=== PATIENT | female | born 1965 | race Caucasian/White ===

== ENCOUNTER → 2020-05-25 | Outpatient (CLI) | payer BC ==
[2020-05-25 09:10] LABS: Basophils # (auto) 0.1 10 ^3/uL (0-0.2); Eosinophils # (auto) 0.3 10 ^3/uL (0-0.8); Eosinophils % (auto) 4.5 % (0.0-7.0); Hematocrit 40.9 % (36.0-46.0); Hemoglobin 13.5 g/dL (12.2-16.2); Lymphocytes # (auto) 2.2 10 ^3/uL (0.4-5.4); Lymphocytes % (auto) 34.2 % (10.0-50.0); Monocytes # (auto) 0.5 10 ^3/uL (0-1.3); Neutrophils # (auto) 3.3 10 ^3/uL (1.6-8.6); Neutrophils % (auto) 52.3 % (37.0-80.0); Nucleated Red Blood Cells % 0.1 %; Platelet Count (auto) 233 10^3/uL (140-450); Red Blood Cells 4.65 10^6/uL (4.0-5.20); Red Cell Distribution Width 13.6 % (11.8-14.3); White Blood Cell 6.4 10^3/uL (4.4-10.8)
[2020-05-25 09:31] LABS: INR 0.92 (0.9-1.15); Partial Thromboplastin Time 32.8 sec (23.0-31.2)
[2020-05-25 17:22] LABS: Albumin 3.6 g/dL (3.4-5.0); BUN/Creatinine Ratio 29.1; Calcium 9.2 mg/dL (8.5-10.1); Potassium 4.4 mmol/L (3.5-5.1)
[2020-05-25 17:41] LABS: Bilirubin, Total 0.4 mg/dL (0.2-1.0); Total Protein 7.7 g/dL (6.4-8.2)
== END | disposition home or self-care (01) ==
LOC: LAB 08:45
PROVIDERS: ATTEND Specialist
DX: R79.89 Other specified abnormal findings of blood chemistry (principal)
CPT/HCPCS: 36415; 80053; 85025; 85610; 85730

== ENCOUNTER → 2020-05-26 | Outpatient (CLI) | payer BC ==
[~2020-05-26] MED LIST: NITROGLYCERIN 0.4 MG SL TAB SL ONE
== END | disposition home or self-care (01) ==
LOC: CT 08:53 → EDUNIT# 09:00
DX: I25.10 Atherosclerotic heart disease of native coronary artery without angina pectoris (principal); I49.3 Ventricular premature depolarization; E78.2 Mixed hyperlipidemia; R06.09 Other forms of dyspnea; R07.9 Chest pain, unspecified
CPT/HCPCS: 75571; 75574

== ENCOUNTER 2022-09-19 09:35 | Inpatient (IN) | payer BC ==
[~2022-09-19] VITALS: Ht 154.9 cm; Wt 127.0 kg
[~2022-09-19 09:35] MED LIST changes: +ACET300T58 PO; +ALPR0.25 PO; +ATOR20TA PO; +METO25TA93 PO; -NITROGLYCERIN 0.4 MG SL TAB SL ONE; +TIZA6CAP10 PO; +TRAM50TA2 PO
[2022-09-19] MEDS ORDERED: ceFAZolin 1GM/50ML 100 ML IV ONE (10:08)
[2022-09-19] MEDS ORDERED: ACETAMINOPHEN IV 100 ML IV ONE (10:54)
[2022-09-19] MEDS ORDERED: GABAPENTIN 400 MG CAP ONE (10:55)
[2022-09-19] MEDS ORDERED: ACETAMINOPHEN 500 MG TAB PO ONE (11:00)
[2022-09-19] MEDS ORDERED: LIDOCAINE 4MG/ML IV SOLN 500 ML IV SCH (11:00)
[2022-09-19] MEDS: MAGNESIUM SULFATE 1GM/100ML 100 ML IV SCH ×4 (11:00→14:00)
[2022-09-19] MEDS ORDERED: GABAPENTIN 400 MG CAP PO ONE (11:00)
[2022-09-19] MEDS ORDERED: SODIUM CHLORIDE LOCK 10 ML ONE ×2 (11:11→12:20)
[2022-09-19] MEDS ORDERED: ROCURONIUM 10MG/ML 10ML VIAL IV ONE (11:11)
[2022-09-19] MEDS ORDERED: GLYCOPYRROLATE 0.2 MG/ML 1ML VIAL ONE (11:11)
[2022-09-19] MEDS ORDERED: LIDOCAINE HCL 100 MG/5ML (2%) SYRG INJ IV ONE (11:11)
[2022-09-19] MEDS ORDERED: ACETAMINOPHEN IV 1000 MG/100ML (10MG/ML) IV ONE (11:30)
[2022-09-19] MEDS ORDERED: MIDAZOLAM HCL 2MG/2ML 2ml VIAL (1mg/ml) ONE (12:20)
[2022-09-19] MEDS ORDERED: ONDANSETRON HCL 4 MG/2 ML VIAL ONE (12:20)
[2022-09-19] MEDS ORDERED: LIDOCAINE 4MG/ML IV SOLN 500 ML IV ONE (12:22)
[2022-09-19] MEDS ORDERED: MAGNESIUM SULFATE 1GM/100ML 200 ML IV ONE ×2 (12:22→12:46)
[2022-09-19] MEDS ORDERED: KETAMINE HCL 10 ML ONE (12:23)
[2022-09-19] MEDS ORDERED: PROPOFOL 10 MG/ML 20 ML IV ONE ×3 (12:23→15:09)
[2022-09-19] MEDS ORDERED: TRANEXAMIC ACID 20 ML ONE (12:24)
[2022-09-19] MEDS ORDERED: fentaNYL CITRATE 100 MCG/2 ML VL ONE (12:44)
[2022-09-19] MEDS ORDERED: TRANEXAMIC ACID 10 ML ONE (12:46)
[2022-09-19] MEDS ORDERED: CHLORHEXIDINE 4% TOPICAL soln 237ML TOP ONE (12:53)
[2022-09-19] MEDS ORDERED: ePHEDrine SULFATE 50 MG/ML AMP ONE (12:59)
[2022-09-19] MEDS ORDERED: CYCLOBENZAPRINE HCL 10 MG TAB PO ONE (16:15)
[2022-09-19] MEDS ORDERED: MORPHINE SULFATE 4 MG/ML SYR/VIAL IV PRN (16:15)
[2022-09-19] MEDS ORDERED: MORPHINE SULFATE INJ 2 MG/ml SYRG IV PRN ×3 (16:15→17:15)
[2022-09-19] MEDS ORDERED: ONDANSETRON HCL 4 MG/2 ML VIAL IV PRN (16:15)
[2022-09-19] MEDS ORDERED: NITROGLYCERIN 0.4 MG SL TAB SL PRN (16:15)
[2022-09-19] MEDS ORDERED: MILK OF MAGNESIA 30ML SUSP PO PRN (16:15)
[2022-09-19] MEDS ORDERED: DOCUSATE SOD 100 MG CAP PO PRN (16:15)
[2022-09-19] MEDS ORDERED: ACETAMINOPHEN 325 MG TAB PO PRN (16:15)
[2022-09-19] MEDS ORDERED: MORPHINE SULFATE 4 MG/ML SYR/VIAL IV ONE (16:15)
[2022-09-19] MEDS: D5W/SOD CHLO 0.9% 1,000 ML IV SCH (16:15)
[2022-09-19] MEDS ORDERED: HYDROmorphone HCL 2 MG/ML VL/or syr IV PRN ×2 (17:15)
[2022-09-19] MEDS ORDERED: METOCLOPRAMIDE HCL 5MG/ml INJ 2ml VIAL IV PRN (17:15)
[2022-09-19 21:22] VITALS: PULSE 89; RESP 16; O2SAT 98
[2022-09-19 21:31] VITALS: BP 153/73; PULSE 89; RESP 16; TEMP 97.5
[2022-09-19] MEDS: DOCUSATE SOD 100 MG CAP PO SCH (21:42)
[2022-09-19] MEDS: HYDROcodone-ACET 10/325MG TAB PO PRN (21:42)
[2022-09-19] MEDS: ATORVASTATIN 20 MG TAB PO SCH (21:44)
[2022-09-19] MEDS: CYCLOBENZAPRINE HCL 10 MG TAB PO SCH (21:44)
[2022-09-19] MEDS: ceFAZolin 1GM/50ML 50 ML IV SCH (21:46)
[2022-09-20] VITALS (9 sets, daily range): BP systolic 120–156; BP diastolic 58–89; PULSE 72–104; RESP 18–20; TEMP 97.4–98.9; O2SAT 92–97
[2022-09-20] MEDS: D5W/SOD CHLO 0.9% 1,000 ML IV SCH ×3 (02:15→21:35)
[2022-09-20] MEDS: ceFAZolin 1GM/50ML 50 ML IV SCH (03:57)
[2022-09-20] MEDS: CYCLOBENZAPRINE HCL 10 MG TAB PO SCH ×3 (06:26→21:34)
[2022-09-20] MEDS: DOCUSATE SOD 100 MG CAP PO SCH ×2 (08:50→21:34)
[2022-09-20] MEDS: HYDROcodone-ACET 10/325MG TAB PO PRN (09:41)
[2022-09-20] MEDS: ATORVASTATIN 20 MG TAB PO SCH (16:11)
[2022-09-21] MEDS: HYDROcodone-ACET 10/325MG TAB PO PRN ×2 (02:57→13:52)
[2022-09-21 05:00] VITALS: BP 107/71; PULSE 73; RESP 18; TEMP 97.9; O2SAT 99
[2022-09-21] MEDS: CYCLOBENZAPRINE HCL 10 MG TAB PO SCH ×2 (05:44→13:52)
[2022-09-21 08:00] VITALS: PULSE 69
[2022-09-21] MEDS: D5W/SOD CHLO 0.9% 1,000 ML IV SCH (08:15)
[2022-09-21 09:00] VITALS: BP 124/84; PULSE 85; RESP 16; TEMP 97.9; O2SAT 98
[2022-09-21] MEDS: DOCUSATE SOD 100 MG CAP PO SCH (09:39)
[2022-09-21 13:00] VITALS: BP 136/78; PULSE 85; RESP 16; TEMP 97.1; O2SAT 100
[2022-09-21 16:48] VITALS: BP 124/84; PULSE 85; RESP 16; TEMP 97.9; O2SAT 98
== END 2022-09-21 17:55 | disposition home health service (06) | DRG 460 ==
LOC: SUR 09:35 → TELE 16:13 → TELE-CENTR 20:51
PROVIDERS: ADMIT Orthopaedic Surgery; ATTEND Internal Medicine
PROC: 0SG30AJ Fusion of Lumbosacral Joint with Interbody Fusion Device, Posterior Approach, Anterior Column, Open Approach (ICD-10-PCS; 2022-09-19)
PROC: 01NB3ZZ Release Lumbar Nerve, Percutaneous Approach (ICD-10-PCS; 2022-09-19)
PROC: 01NR3ZZ Release Sacral Nerve, Percutaneous Approach (ICD-10-PCS; 2022-09-19)
PROC: 0SG00AJ Fusion of Lumbar Vertebral Joint with Interbody Fusion Device, Posterior Approach, Anterior Column, Open Approach (ICD-10-PCS; principal; 2022-09-19 12:43)
DX: M48.061 Spinal stenosis, lumbar region without neurogenic claudication (principal); M54.16 Radiculopathy, lumbar region; E78.5 Hyperlipidemia, unspecified; F17.210 Nicotine dependence, cigarettes, uncomplicated; Z91.041 Radiographic dye allergy status
CPT/HCPCS: 72100; 76000; 86850; 86900; 86901; 97110; 97116; 97163; 97530; G0378; J0131; J0690; J2250; J2405; J2704; J7042

== ENCOUNTER 2023-10-11 06:06 | Inpatient (IN) | payer BC ==
[~2023-10-11] VITALS: Ht 154.9 cm; Wt 133.3 kg
[~2023-10-11 06:06] MED LIST changes: -ACET300T58 PO; -ALPR0.25 PO; +OMEP-434 PO; -TIZA6CAP10 PO; -TRAM50TA2 PO
[2023-10-11] MEDS ORDERED: levoFLOXacin 750MG 150 ML IV ONE (06:45)
[2023-10-11] MEDS ORDERED: MIDAZOLAM HCL 2MG/2ML 2ml VIAL (1mg/ml) ONE (07:14)
[2023-10-11] MEDS ORDERED: HYDROmorphone HCL 2 MG/ML VL/or syr ONE (07:14)
[2023-10-11] MEDS ORDERED: fentaNYL CITRATE 100 MCG/2 ML VL ONE (07:14)
[2023-10-11] MEDS ORDERED: ONDANSETRON HCL 4 MG/2 ML VIAL ONE (07:15)
[2023-10-11] MEDS ORDERED: LIDOCAINE 1% INJ PF 5ML AMP ONE (07:15)
[2023-10-11] MEDS ORDERED: PROPOFOL 10 MG/ML 20 ML IV ONE (07:15)
[2023-10-11] MEDS ORDERED: PHENYLEPHRINE HCL 10 MG/ML VL ONE (07:15)
[2023-10-11] MEDS ORDERED: ePHEDrine SULFATE 50 MG/ML AMP ONE (07:15)
[2023-10-11] MEDS ORDERED: KETAMINE 50mg/ML 1ml syringe ONE (07:15)
[2023-10-11] MEDS ORDERED: KETOROLAC TROMETH 30 MG/ML 1ML VIAL ONE (07:15)
[2023-10-11] MEDS ORDERED: GLYCOPYRROLATE 0.2 MG/ML 1ML VIAL ONE (07:15)
[2023-10-11] MEDS ORDERED: DexAMETHasone SOD PHOS 10MG/1ML VIAL INJ ONE (07:15)
[2023-10-11] MEDS ORDERED: ceFAZolin 1GM VL ONE (08:18)
[2023-10-11] MEDS ORDERED: SUGAMMADEX 200mg/2ml Vial (100MG/ML) IV ONE (09:52)
[2023-10-11] MEDS ORDERED: ACETAMINOPHEN 325 MG TAB PO PRN (11:15)
[2023-10-11] MEDS ORDERED: NITROGLYCERIN 0.4 MG SL TAB SL PRN (11:15)
[2023-10-11] MEDS ORDERED: ONDANSETRON HCL 4 MG/2 ML VIAL IV PRN (11:15)
[2023-10-11] MEDS ORDERED: MORPHINE SULFATE INJ 2 MG/ml SYRG IV PRN ×2 (11:15)
[2023-10-11] MEDS ORDERED: HYDROmorphone HCL 2 MG/ML VL/or syr IV PRN (11:30)
[2023-10-11 14:14] VITALS: BP 122/54; PULSE 86; RESP 18; TEMP 98.1; O2SAT 94
[2023-10-11] MEDS: ceFAZolin 2 GM/D5W50ml 50 ML IV ONE (14:35)
[2023-10-11] MEDS: PROPOFOL 200 ML IV ONE (14:36)
[2023-10-11] MEDS: TRANEXAMIC ACID 20 ML ONE (14:36)
[2023-10-11] MEDS: FAMOTIDINE (10MG/ML) 2ML VL IV ONE (14:36)
[2023-10-11] MEDS: levoFLOXacin 750MG 150 ML IV ONE (14:36)
[2023-10-11] MEDS: ONDANSETRON HCL 4 MG/2 ML VIAL IV ONE (14:37)
[2023-10-11] MEDS: BACITRACIN TOP OINT 1 UD PKG TOP ONE (14:37)
[2023-10-11] MEDS: DOCUSATE SOD 100 MG CAP PO ONE (14:37)
[2023-10-11] MEDS: CHLORHEXIDINE 4% TOPICAL soln 118ml TOP ONE (14:37)
[2023-10-11] MEDS: CYCLOBENZAPRINE HCL 10 MG TAB PO SCH (14:57)
[2023-10-11] MEDS: D5W/SOD CHLO 0.9% 1,000 ML IV SCH (14:57)
[2023-10-11] MEDS: ceFAZolin 1GM/50ML 50 ML IV SCH (15:11)
[2023-10-11] MEDS: HYDROcodone-ACET 10/325MG TAB PO PRN (17:21)
[2023-10-11] MEDS: ATORVASTATIN 20 MG TAB PO SCH (18:29)
[2023-10-11 20:00] VITALS: PULSE 72; PULSE 77; RESP 18; O2SAT 20
[2023-10-11 21:00] VITALS: BP 126/78; PULSE 77; RESP 20; TEMP 97.9; O2SAT 96
[2023-10-11] MEDS: MILK OF MAGNESIA 30ML SUSP PO PRN (21:08)
[2023-10-11] MEDS: DOCUSATE SOD 100 MG CAP PO SCH (21:09)
[2023-10-12 01:14] VITALS: BP 128/74; PULSE 79; RESP 19; TEMP 97.3; O2SAT 94
[2023-10-12 05:00] VITALS: BP 140/86; PULSE 81; RESP 20; TEMP 97.6; O2SAT 95
[2023-10-12] MEDS ORDERED: PANTOPRAZOLE 40 MG TAB PO SCH (06:00)
[2023-10-12 08:00] VITALS: PULSE 100; PULSE 90; RESP 20; O2SAT 96
[2023-10-12 09:00] VITALS: BP 136/78; PULSE 100; RESP 20; TEMP 97.8; O2SAT 96
[2023-10-12] MEDS: METOPROLOL SUCCINATE XL 50 MG TAB PO SCH (09:09)
[2023-10-12] MEDS ORDERED: DOCU-265 PO (11:15)
[2023-10-12] MEDS ORDERED: CYCL-611 PO (11:15)
[2023-10-12] MEDS ORDERED: HYDR-4798 PO (11:15)
[2023-10-12 12:22] VITALS: BP 129/74; PULSE 86; RESP 16; TEMP 98.3; O2SAT 97
== END 2023-10-12 13:52 | disposition home or self-care (01) | DRG 473 ==
LOC: SUR 06:06 → TELE 11:03 → TELE-WESTW 14:15
PROVIDERS: ADMIT Orthopaedic Surgery; ATTEND Internal Medicine
PROC: 01N10ZZ Release Cervical Nerve, Open Approach (ICD-10-PCS; 2023-10-11)
PROC: 00NW0ZZ Release Cervical Spinal Cord, Open Approach (ICD-10-PCS; 2023-10-11)
PROC: 0RB30ZZ Excision of Cervical Vertebral Disc, Open Approach (ICD-10-PCS; 2023-10-11)
PROC: 4A11X4G Monitoring of Peripheral Nervous Electrical Activity, Intraoperative, External Approach (ICD-10-PCS; 2023-10-11)
PROC: 0RG20A0 Fusion of 2 or more Cervical Vertebral Joints with Interbody Fusion Device, Anterior Approach, Anterior Column, Open Approach (ICD-10-PCS; principal; 2023-10-11 07:45)
DX: M48.02 Spinal stenosis, cervical region (principal); M50.10 Cervical disc disorder with radiculopathy, unspecified cervical region; K21.9 Gastro-esophageal reflux disease without esophagitis; I10 Essential (primary) hypertension; E78.5 Hyperlipidemia, unspecified; Z91.041 Radiographic dye allergy status; Z88.8 Allergy status to other drugs, medicaments and biological substances
CPT/HCPCS: 72040; 76000; 86850; 86900; 86901; 97116; 97163; 97530; G0378; J0690; J1100; J1885; J1956; J2250; J2405; J2704; J3490